=== PATIENT | female | born 1990 ===

== ENCOUNTER 2017-05-22 22:31 | Emergency (ER) | payer OTHER ==
[2017-05-22 22:42] VITALS: BMI 39.6
[2017-05-22 22:44] VITALS: TEMP 98.4; O2SAT 100
--- NOTE | 2017-05-22 23:24 | ED PDOC ---
Arrival/HPI - General Chief Complaint: Finger,Hand,&Wrist Time Seen by Provider: 05/22/17 23:18 Historian: Patient - History of Present Illness Narrative History of Present Illness (Text): 05/22/17 23:24 Tiana Archibald is a 27 year old female who presents to the Emergency department complaining of discomfort to the left 4th finger prior to arrival. Patient states she sustained injury after she jammed her left 4th finger in a cabinet door. Patient denies any decreased ROM, numbness//tingling/weakness, other trauma/injury, or any other complaints. Time/Duration: Prior to Arrival Symptom Onset: Sudden Symptom Course: Unchanged Activities at Onset: Light Context: Home Past Medical History - Provider Review Nursing Documentation Reviewed: Yes - Infectious Disease Hx of Infectious Diseases: None - Psychiatric Hx Anxiety: Yes Hx Substance Use: No - Anesthesia Hx Anesthesia: No Family/Social History - Physician Review Nursing Documentation Reviewed: Yes Family/Social History: Unknown Family HX Smoking Status: Never Smoked Hx Alcohol Use: Yes Frequency of alcohol use: Socially Hx Substance Use: No Allergies/Home Meds Allergies/Adverse Reactions: Allergies No Known Allergies Allergy (Verified 05/22/17 22:41) Home Medications: Home Meds Medication Instructions Recorded Confirmed hydrOXYzine Pamoate [Vistaril] 1 cap PO BID 05/22/17 05/22/17 Review of Systems - Physician Review All systems were reviewed & negative as marked: Yes - Review of Systems Constitutional: Normal. absent: Fevers Eyes: Normal ENT: Normal Respiratory: Normal. absent: SOB, Cough Cardiovascular: Normal. absent: Chest Pain Gastrointestinal: Normal. absent: Abdominal Pain, Diarrhea, Nausea, Vomiting Genitourinary Female: Normal. absent: Dysuria, Frequency, Hematuria, Urine Output Changes Musculoskeletal: Arthralgias (+left 4th finger pain). absent: Back Pain, Neck Pain Skin: Normal. absent: Rash Neurological: Normal. absent: Headache, Dizziness Endocrine: Normal Hemo/Lymphatic: Normal Psychiatric: Normal Physical Exam Vital Signs Reviewed: Yes Vital Signs Temp Pulse Resp BP Pulse Ox 05/22/17 22:43 98.4 F 97 H 18 125/85 100 Temperature: Afebrile Blood Pressure: Normal Pulse: Regular Respiratory Rate: Normal Appearance: Positive for: Well-Appearing, Non-Toxic, Comfortable Pain Distress: None Mental Status: Positive for: Alert and Oriented X 3 - Systems Exam Head: Present: Atraumatic, Normocephalic Pupils: Present: PERRL Extroacular Muscles: Present: EOMI Conjunctiva: Present: Normal Upper Extremity: Present: Normal ROM, NORMAL PULSES, Swelling (Mild swelling to PIP joint of left 4th finger), Neurovascularly Intact, Capillary Refill < 2s. No: Cyanosis, Edema, Erythema, Temperature Abnormalties, Deformity Lower Extremity: Present: Normal Inspection. No: Edema Neurological: Present: GCS=15, CN II-XII Intact, Speech Normal Skin: Present: Warm, Dry, Normal Color. No: Rashes Psychiatric: Present: Alert, Oriented x 3, Normal Insight, Normal Concentration Medical Decision Making ED Course and Treatment: 05/22/17 23:24 Impression: 27 year old female complaining of left 4th finger pain. Differential Diagnosis included but are not limited to: sprain vs. contusion Plan: -- XR Left Hand, 4th finger -- Reassess and disposition Progress Notes: 05/23/17 00:30 Reviewed radiology,XR Left Hand, 4th finger shows no acute processes. 05/23/17 00:36 On reevaluation the patient feels better and is in no acute distress. I have discussed the results and plan with the patient, who expresses understanding. Patient given the opportunity to ask question, all questions were answered and there is agreement with the plan to discharge the patient home. Patient is stable for discharge. Patient was instructed to follow up with physician/clinic in 1-2 days or return if symptoms persist/worsen or new concerning symptoms arise. - RAD Interpretation Radiology Orders: 05/22/17 23:18 HAND LEFT 4TH DIGIT (FINGER) [RAD] Stat - Medication Orders Current Medication Orders: Discontinued Medications Ibuprofen (Motrin Tab) 600 mg PO STAT STA Stop: 05/23/17 00:39 - Scribe Statement The provider has reviewed the documentation as recorded by the Tee Campbell Provider Scribe Attestation: All medical record entries made by the Scribe were at my direction and personally dictated by me. I have reviewed the chart and agree that the record accurately reflects my personal performance of the history, physical exam, medical decision making, and the department course for this patient. I have also personally directed, reviewed, and agree with the discharge instructions and disposition. Disposition/Present on Arrival - Present on Arrival Any Indicators Present on Arrival: No History of DVT/PE: No History of Uncontrolled Diabetes: No Urinary Catheter: No History of Decub. Ulcer: No History Surgical Site Infection Following: None - Disposition Have Diagnosis and Disposition been Completed?: Yes Diagnosis: Finger contusion, Sprain Disposition: HOME/ ROUTINE Disposition Time: 00:36 Patient Plan: Discharge Condition: GOOD Discharge Instructions (ExitCare): Contusion in Adults (ED), Finger Sprain (ED) Additional Instructions: Maintain finger splint/advil as directed/follow up with your doctor this week Forms: [facility] ([place]namese), WORK NOTE
[2017-05-23 01:14] VITALS: BP 124/87; PULSE 90; RESP 16
--- NOTE | 2017-05-23 08:56 | RAD ---
PROCEDURE: Left ring finger radiographs. HISTORY: injury COMPARISON: None. TECHNIQUE: AP radiograph of the left hand, as well as spot oblique and lateral images of left ring finger were obtained. FINDINGS: LEFT RING FINGER: Left ring finger normal, without fracture of focal lesion. Remainder of the left hand (as seen on the AP view) is grossly unremarkable. JOINTS: Normal. SOFT TISSUES: Normal. OTHER FINDINGS: None. IMPRESSION: Normal left ring finger radiographs.
== END 2017-05-23 01:00 | disposition home or self-care (01) ==
LOC: ED 22:31
DX: S60.042A Contusion of left ring finger without damage to nail, initial encounter (principal); S63.615A Unspecified sprain of left ring finger, initial encounter; W23.0XXA Caught, crushed, jammed, or pinched between moving objects, initial encounter; Y93.9 Activity, unspecified; Y92.89 Other specified places as the place of occurrence of the external cause

== ENCOUNTER 2018-11-11 01:19 | Emergency (ER) | payer OTHER ==
[2018-11-11 01:35] VITALS: BMI 34.3
[2018-11-11 01:57] VITALS: TEMP 97.8
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
[2018-11-11 03:32] VITALS: BP 126/87; PULSE 93; RESP 16; O2SAT 98
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
== END 2018-11-11 03:32 | disposition home or self-care (01) ==
LOC: ED 01:19
DX: S29.012A Strain of muscle and tendon of back wall of thorax, initial encounter (principal); V43.62XA Car passenger injured in collision with other type car in traffic accident, initial encounter; Y92.410 Unspecified street and highway as the place of occurrence of the external cause